=== PATIENT | male | born 1995 ===

== ENCOUNTER 2017-08-06 23:09 | Emergency (ER) | payer OTHER ==
[~2017-08-06] VITALS: Ht 185.4 cm; Wt 145.1 kg
--- NOTE | 2017-08-06 23:18 | NUR ---
Dr. Mallory at bedside for MSE.
--- NOTE | 2017-08-06 23:20 | NUR ---
Patient brought in by family, in severe pain, reports backpain x 4 days was ignoring it until it got very bad today. Patient perspiring, thrashing, restless.
[2017-08-06] MEDS ORDERED: KETOROLAC TROMETHAMINE 30 MG INJ ONE (23:24)
[2017-08-06] MEDS ORDERED: ONDANSETRON 4 MG/2 ML VIAL ONE (23:24)
[2017-08-06] MEDS ORDERED: HYDROMORPHONE 4 MG/1 ML DISP.SYRIN ONE (23:26)
[2017-08-06] MEDS ORDERED: HYDROMORPHONE 1 MG/1 ML DISP.SYRIN IV ONE (23:30)
[2017-08-06] MEDS ORDERED: ONDANSETRON 4 MG/2 ML VIAL IV ONE (23:30)
[2017-08-06] MEDS ORDERED: KETOROLAC TROMETHAMINE 15 MG INJ IV ONE (23:30)
[2017-08-06] MEDS ORDERED: IV NORMAL SALINE 1000 ML BAG IV ONE (23:30)
[2017-08-06 23:41] LABS: BASOPHILS # (AUTO) 0.1 K/uL (0.0-8.0); BASOPHILS % (AUTO) 0.7 % (0.0-2.0); EOSINOPHILS # (AUTO) 0.3 K/uL (0.0-0.7); EOSINOPHILS % (AUTO) 2.1 % (0.0-7.0); HEMATOCRIT 50.3 % (36.7-47.1); HEMOGLOBIN 17.2 g/dL (12.5-16.3); LYMPHOCYTES # (AUTO) 4.2 K/uL (20.0-40.0); LYMPHOCYTES % (AUTO) 32.6 % (20.5-51.5); MEAN CORPUSCULAR HEMOGLOBIN 28.9 uug (23.8-33.4); MEAN CORPUSCULAR HGB CONC 34 g/dL (32.5-36.3); MEAN CORPUSCULAR VOLUME 84.5 fL (73.0-96.2); MONOCYTES # (AUTO) 0.8 K/uL (2.0-10.0); MONOCYTES % (AUTO) 6.2 % (0.0-11.0); NEUTROPHILS # (AUTO) 7.6 K/uL (1.8-8.9); NEUTROPHILS % (AUTO) 58.4 % (38.5-71.5); PLATELET COUNT (AUTO) 293 K/uL (152-348); RED BLOOD CELL COUNT(AUTO) 5.96 MIL/uL (4.06-5.63)
[2017-08-06 23:55] LABS: BILIRUBIN,DIRECT 0.1 mg/dL (0.0-0.2); BILIRUBIN,TOTAL 0.3 mg/dL (0.2-1.0); CREATININE 1.3 mg/dL (0.6-1.3); POTASSIUM 4.1 mmol/L (3.5-5.1); TOTAL PROTEIN, SERUM 7.7 g/dL (6.4-8.2)
--- NOTE | 2017-08-06 23:59 | NUR ---
Patient out of ER for CT via wheelchair. Patient reports pain now 07/29.
[2017-08-07] MEDS ORDERED: IV NORMAL SALINE 1000 ML BAG IV ONE
--- NOTE | 2017-08-07 00:10 | NUR ---
Patient back to ER from CT. Patient reports pain is coming back now 6/10 on back, urine sample provided.
[2017-08-07 00:20] LABS: *BILIRUBIN,URIN 1+ (NEGATIVE); *BLOOD, URINE NEGATIVE (NEGATIVE); *CLARITY,URINE CLEAR (CLEAR); *COLOR,URINE AMBER (YELLOW); *KETONES,URINE TRACE (NEGATIVE); *PROTEIN,URINE 1+ (NEGATIVE); *UROBILINOGEN,URINE 0.2 E.U./dl (NORMAL); LEUKOCYTE ESTERASE ,URINE NEGATIVE (NEGATIVE); NITRITE, URINE NEGATIVE (NEGATIVE); UGLUCOSE NEGATIVE (NEGATIVE)
[2017-08-07] MEDS ORDERED: HYDROMORPHONE 4 MG/1 ML DISP.SYRIN ONE (00:27)
[2017-08-07] MEDS ORDERED: HYDROMORPHONE 1 MG/1 ML DISP.SYRIN IV ONE (00:30)
[2017-08-07 00:46] LABS: BACTERIA,URINE FEW /HPF (NONE SEEN); RBC,URINE 0-3 /HPF (0-3); SQUAMOUS EPITHELIAL CELL,UR FEW /HPF (NONE SEEN)
--- NOTE | 2017-08-07 01:03 | NUR ---
Patient in bed, reports pain 0/10. No acute signs of distress.
--- NOTE | 2017-08-07 02:19 | NUR ---
PT FEELING MUCH BETTER PAIN 0/10.IV D/C CATH TIP INTACT.PT D/C HOME WITH FAMILY WITH RX AND [facility]CI EXPLAINED TO PT AND FAMILY.ALL VERBAIZED UNDERSTANDING
[2017-08-07 02:22] VITALS: BP 138/62
== END 2017-08-07 02:23 | disposition home or self-care (01) ==
LOC: ER 23:09
DX: M54.5 Low back pain (principal)
CPT/HCPCS: 36415; 83690; 85025; A4663; J1170; J1885; J2405; J7030

== ENCOUNTER 2021-01-13 16:47 | Emergency (ER) | payer OTHER ==
[~2021-01-13] VITALS: Ht 188 cm; Wt 140.6 kg
--- NOTE | 2021-01-13 18:10 | NUR ---
Pt was not found in ER waiting room or outside ER.
== END 2021-01-13 18:28 | disposition left against medical advice (07) ==
LOC: ER 16:48
DX: Z53.21 Procedure and treatment not carried out due to patient leaving prior to being seen by health care provider (principal)